=== PATIENT | male | born 2005 | race Caucasian/White ===

== ENCOUNTER 2023-06-08 06:49 | Inpatient (IN) | payer OTHER ==
[2023-06-08 07:40] LABS: #Eosinphils 0.1 10x3/uL (0.0-0.5); #Neutrophils 6.2 10x3/uL (1.5-8.4); %Basophils 0.5 % (0.0-2.0); %Eosinophils 0.6 % (0.0-6.0); %Lymphocytes 18.1 % (18.0-47.0); %Monocytes 11.2 % (0.0-10.0); %Neutrophils 69.4 % (40.0-75.0); Hematocrit 36.3 % (38.8-50.0); Hemoglobin 12.8 g/dL (13.5-17.5); Mean Corpuscular HGB CONC 35.3 g/dL (32.0-36.0); Mean Corpuscular Hemoglobin 29.4 pg (27.0-33.0); Mean Corpuscular Volume 83.4 fl (81.2-95.1); Mean Platelet Volume 9.6 fl (7.4-10.4); Platelet Count 179 10x3/uL (150-450); RBC Distribution Width 12.3 % (11.5-14.5); Red Blood Cell (RBC) Count 4.35 10x6/uL (4.32-5.72); White Blood Cell (WBC) Count 8.9 10x3/uL (3.5-10.5)
[2023-06-08 07:49] LABS: Acetaminophen Less than 10 mcg/mL (10.0-30.0); Alcohol Less than 10.0 mg/dL (Less than 10); Salicylate Less than 8.0 mg/dL (15.0-30.0)
[2023-06-08 07:50] LABS: ALT (SGPT) 18 U/L (8-55); AST (SGOT) 20 U/L (10-45); Albumin 4.4 g/dL (3.5-5.0); Alkaline Phosphatase 77 U/L (50-130); Anion Gap 16 mmol/L (10-20); BUN (Urea Nitrogen) 14 mg/dL (8.4-21.0); Bilirubin, Total 0.3 mg/dL (0.2-1.2); Calc. Creatinine Clearance 0 mL/min (70-130); Calcium 8.6 mg/dL (7.8-10.44); Carbon Dioxide 21 mmol/L (22-29); Chloride 106 mmol/L (98-107); Estimated GFR 121; Globulin 2.4 g/dL (2.4-3.5); Glucose 100 mg/dL (70-105); Potassium 3.6 mmol/L (3.5-5.1); Protein, Total 6.8 g/dL (6.0-8.3); Sodium 139 mmol/L (136-145)
[2023-06-08 08:09] LABS: Amphetamine Not Detected (NotDetected); Barbiturates Screen Not Detected (NotDetected); Benzodiazepine Screen Not Detected (NotDetected); Cocaine Metabolite Screen Detected (NotDetected); Methadone Not Detected (NotDetected); Methamphetamine Not Detected (NotDetected); Opiate Screen Not Detected (NotDetected); Oxycodone Screen Not Detected (NotDetected); Phencyclidine (PCP) Not Detected (NotDetected); THC/Cannabinoid Screen Detected (NotDetected); Tricyclic Screen Detected (NotDetected)
[2023-06-08] MEDS ORDERED: Lorazepam 2 MG/ML VIAL ONE ×2 (08:29→08:34)
[2023-06-08 08:36] LABS: ALV-art Gradient 1.255 mmHg (0-20); Actual Bicarbonate (HCO3a) 24.8 mEq/L (22-28); CO2 Tension 40.7 mmHg (35.0-45.0); Calcium, Ionized (arterial) 1.16 mmol/L (1.12-1.30); Carboxyhemoglobin (COHb) 0.3 gm% (0.0-3.0); Hematocrit-ABG 40 % (42.0-52.0); Hemoglobin (Hb) 13.5 g/dL (14.0-18.0); O2 Tension (PaO2), arterial 97.6 mmHg (80.0-100.0); Potassium - ABG Lab 3.55 mmol/L (3.70-5.30); Puncture Site RBA; pH, Arterial 7.402 (7.35-7.45)
[2023-06-08 11:13] VITALS: BMI 24.3
[2023-06-08] MEDS ORDERED: Acetaminophen 325 MG TAB PO PRN (12:32)
[2023-06-08] MEDS ORDERED: Acetaminophen 650 MG Suppository PR PRN (12:32)
[2023-06-08] MEDS ORDERED: Senokot S 8.6-50 MG TAB PO PRN (12:32)
[2023-06-08] MEDS: Sodium Chloride 0.9% 1,000 ML IV SCH (12:57)
[2023-06-09 04:27] LABS: Anion Gap 15 mmol/L (10-20); BUN (Urea Nitrogen) 13 mg/dL (8.4-21.0); Calc. Creatinine Clearance 145 mL/min (70-130); Calcium 9.2 mg/dL (7.8-10.44); Carbon Dioxide 25 mmol/L (22-29); Chloride 106 mmol/L (98-107); Estimated GFR 127; Glucose 63 mg/dL (70-105); Potassium 3.6 mmol/L (3.5-5.1); Sodium 142 mmol/L (136-145)
[2023-06-09 04:56] LABS: #Eosinphils 0.1 10x3/uL (0.0-0.5); #Monocytes 0.9 10x3/uL (0.0-1.1); #Neutrophils 8.8 10x3/uL (1.5-8.4); %Basophils 0.2 % (0.0-2.0); %Eosinophils 0.6 % (0.0-6.0); %Lymphocytes 12.9 % (18.0-47.0); %Monocytes 7.6 % (0.0-10.0); %Neutrophils 78.4 % (40.0-75.0); Hematocrit 41.6 % (38.8-50.0); Mean Corpuscular HGB CONC 33.7 g/dL (32.0-36.0); Mean Corpuscular Hemoglobin 28.8 pg (27.0-33.0); Mean Corpuscular Volume 85.6 fl (81.2-95.1); Mean Platelet Volume 9.8 fl (7.4-10.4); Platelet Count 173 10x3/uL (150-450); RBC Distribution Width 12.7 % (11.5-14.5); Red Blood Cell (RBC) Count 4.86 10x6/uL (4.32-5.72); White Blood Cell (WBC) Count 11.3 10x3/uL (3.5-10.5)
[2023-06-09] MEDS ORDERED: Potassium Chloride 20 MEQ TAB PO SCH (06:15)
[2023-06-09] MEDS: Sodium Chloride 0.9% 1,000 ML IV SCH (08:59)
[2023-06-10 08:34] VITALS: BP 126/72; TEMP 97.1
== END 2023-06-10 10:45 | disposition home or self-care (01) | DRG 917 ==
LOC: EEVIPCON 06:49 → CSHERS 06:49 → CSHERHOLD 09:31 → CSHICU 10:57
PROVIDERS: ADMIT Internal Medicine; ATTEND Hospitalist
PROC: 4A033R1 Measurement of Arterial Saturation, Peripheral, Percutaneous Approach (ICD-10-PCS; principal; 2023-06-08)
DX: T43.592A Poisoning by other antipsychotics and neuroleptics, intentional self-harm, initial encounter (principal); G92.8 Other toxic encephalopathy; R45.851 Suicidal ideations; F32.A Depression, unspecified; F90.9 Attention-deficit hyperactivity disorder, unspecified type; T42.1X2A Poisoning by iminostilbenes, intentional self-harm, initial encounter; F19.10 Other psychoactive substance abuse, uncomplicated; Z91.013 Allergy to seafood; Z79.899 Other long term (current) drug therapy; Y92.89 Other specified places as the place of occurrence of the external cause
CPT/HCPCS: 36416; 36600; 80048; 80053; 80306; 80307; 82805; 83735; 84443; 85025; 93005; 93010; 94760; 94762; 99285; J1650; J2060; J7050